=== PATIENT | female | born 1975 | race Two or more races ===

== ENCOUNTER 2024-12-10 20:00 | Emergency (ER) | payer MEDICAID ==
[~2024-12-10] VITALS: Ht 160 cm; Wt 70.9 kg
--- NOTE | 2024-12-10 20:13 | ED.PDOC ---
History of Present Illness HPI Comments 49-year-old female with no reported PMHx presents with a chief complaint of dizziness x 2 months with associated headache. Patient states that she feels dizzy when walking and even just sitting still. Patient reports also that she is experiencing left sided headache and describes pain as pressure. No other s ymptoms or modifying factors present at this time. 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 Family History Family History: Reviewed,noncontributory to illness Social History Smoker: Non-Smoker Alcohol: Denies ETOH Use Drugs: Denies Drug Use Lives In: Home Constitutional: denies: chills, diaphoresis, fatigue, fever, malaise, sweats, weakness, others EENTM: denies: blurred vision, double vision, ear bleeding, ear discharge, ear drainage, ear pain, ear ringing, eye pain, eye redness, hearing loss, mouth pain, mouth swelling, nasal discharge, nose bleeding, nose congestion, nose pain, photophobia, tearing, throat pain, throat swelling, voice changes, others Respiratory: denies: cough, hemoptysis, orthopnea, SOB at rest, shortness of breath, SOB with excertion, stridor, wheezing, others Cardiovascular: denies: chest pain, dizzy spells, diaphoresis, Dyspnea on exertion, edema, irregular heart beat, left arm pain, lightheadedness, palpitations, PND, syncope, others Gastrointestinal: denies: abdomen distended, abdominal pain, blood streaked bowels, constipated, diarrhea, dysphagia, difficulty swallowing, hematemesis, melena, nausea, poor appetite, poor fluid intake, rectal bleeding, rectal pain, vomiting, others Genitourinary: denies: abnormal vagina bleeding, burning, dyspareunia, dysuria, flank pain, frequency, hematuria, incontinence, pain, , vagina discharge, urgency, others Neurological: reports: dizziness, headache; denies: fainting, left sided numbness, left sided weakness, numbness, paresthesia, pre-existing deficit, right sided numbness, right sided weakness, seizure, speech problems, tingling, tremors, weakness, others Musculoskeletal: denies: back pain, gout, joint pain, joint swelling, muscle pain, muscle stiffness, neck pain, others Integumetry: denies: bruises, change in color, change in hair/nails, dryness, laceration, lesions, lumps, rash, wounds, others Allergic/Immunocompromised: denies: Difficulty Healing, Frequent Infections, Hives, Itching, others Hematologic/Lymphatic: denies: anemia, blood clots, easy bleeding, easy bruising, swollen glands, others Endocrine: denies: excessive hunger, excessive sweating, excessive thirst, excessive urination, flushing, intolerance to cold, intolerance to heat, unexplained weight gain, unexplained weight loss, others Psychiatric: denies: anxiety, bipolar disorder, depression, hopeless, panic disorder, schizophrenia, sleepless, suicidal, others All Other Systems: Reviewed and Negative Physical Exam General Appearance: No Apparent Distress, Normal HEENT: Pharynx Normal, TM Abnormal (L), TM Abnormal (R) Neck: Full Range of Motion, Non-Tender, Normal, Normal Inspection Respiratory: Chest Non-Tender, Lungs Clear, No Accessory Muscle Use, No Respiratory Distress, Normal Breath Sounds Cardiovascular: No Edema, No JVD, No Murmur, No Gallop, Normal Peripheral Pulses, Regular Rate/Rhythm Breast Exam: Deferred Gastrointestinal: No Organomegaly, Non Tender, No Pulsatile Mass, Normal Bowel Sounds, Soft Genitalia: Deferred Pelvic: Deferred Rectal: Deferred Extremities: No calf tenderness, Normal capillary refill, Normal inspection, Normal range of motion, Non-tender, No pedal edema Musculoskeletal : Apperance: Normal Neurologic: Alert, 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 Was a procedure done?: No Differential Dx Considerations may include: bpv, central vertigo, intracranial mass, intracranial bleed, labyrinthitis, aye's disease X-Ray, Labs, Meds, VS Vital Signs Date Time Temp Pulse Resp B/P (MAP) Pulse Ox O2 Delivery O2 Flow Rate FiO2 5/20/25 20:15 97.7 84 18 143/77 99 96 97.7 Time of 1ST Reevaluation: 20:38 Reevaluation 1ST: Unchanged Time of 2ND Reevaluation: 21:10 Reevaluation 2ND: Improved Patient Education/Counseling: Diagnosis, Treatment, Prognosis, Need For Follow Up Family Education/Counseling: No Family Present Departure 1 Departure Time of Disposition: 21:06 Impression: Primary Impression: BPV (benign positional vertigo) Qualified Codes: H81.12 - Benign paroxysmal vertigo, left ear Additional Impression: Eustachian tube disorder Qualified Codes: H69.93 - Unspecified eustachian tube disorder, bilateral Disposition: HOME / SELF CARE / HOMELESS Condition: Good e-Prescriptions Loratadine & Pseudoephedrine (Claritin-D 24 Hour 10-240 mg) 1 Tab Tab 1 TAB PO DAILY for 7 Days, #7 TAB Prov: UCHE NELSON MD 12/10/24 Ondansetron Odt 4MG Tab (ZOFRAN PO) 4 Mg Tb 4 MG PO Q4HP PRN for 3 Days, #15 TAB ODT TAB-DISSOLVE IN MOUTH, THEN SWALLOW Prov: UCHE NELSON MD 12/10/24 Meclizine HCl (Meclizine 25) 25 Mg Tab 25 MG PO Q4HP PRN for 3 Days, #15 TAB Prov: UCHE NELSON MD 12/10/24 Discharged With: Self Critical Care Note Critical Care Time?: Yes (55 min-critical care time only) Critical care comment: due to concerns for patient's condition deteriorating, the care required my highest level of attention and readiness to intervene. i assessed the patient's condition, ordered the proper tests and treatments, reassessed for response and reviewed the results. i communicated with medical personnel and formulated a plan of care. total critical care time does not include any procedures Stability Stability form required: No Heart Score Heart Score: Heart Score Response (Comments) Value History N/A 0 EKG N/A 0 Age N/A 0 Risk Factors N/A 0 Troponin N/A 0 Total 0 I personally scribed for UCHE NELSON MD ([email or web address]) on 12/10/24 at 20:13. Electronically submitted by Nolan Valadez ([email or web address]). UCHE NELSON MD December 10, 2024 20:13
[2024-12-10] MEDS: ACETAMINOPHEN 325 MG TAB PO ONE (20:15)
--- NOTE | 2024-12-10 20:51 | DVH ---
CT HEAD WITHOUT CONTRAST INDICATION: left sided headache, vertigo COMPARISON: None TECHNIQUE: CT of the head without intravenous contrast. RADIATION DOSE: CTDIvol: 50.54 mGy, DLP: 810.12 mGy*cm FINDINGS: There is no evidence of intracranial hemorrhage, infarct, extra-axial collection, mass effect, midli ne shift, herniation or hydrocephalus. The ventricles, sulci and cisterns are normal. The thornton-white differentiation is normal. Visualized paranasal sinuses and mastoid air cells are clear. Soft tissues and osseous structures are unremarkable. IMPRESSION: No intracranial abnormality identified.
[2024-12-10] MEDS ORDERED: ZOFR4T PO (21:08)
[2024-12-10] MEDS ORDERED: ALPR0.25 PO (21:08)
[2024-12-10] MEDS ORDERED: MECL1TAB42 PO (21:08)
[2024-12-10] MEDS ORDERED: LORA-1130 PO (21:08)
[2024-12-10] MEDS: MECLIZINE HCL 25 MG TAB PO ONE (21:15)
[2024-12-10] MEDS: ALPRAZolam 0.25 MG TAB PO ONE (21:15)
[2024-12-10] MEDS: ONDANSETRON ODT 4 MG TAB PO ONE (21:15)
[2024-12-11 00:38] VITALS: BP 137/72; PULSE 62; RESP 20; TEMP 97.7; O2SAT 98
== END 2024-12-11 00:42 | disposition home or self-care (01) ==
LOC: ER 20:00
DX: H81.12 Benign paroxysmal vertigo, left ear (principal); H69.93 Unspecified Eustachian tube disorder, bilateral
CPT/HCPCS: 70450